=== PATIENT | female | born 1975 | race Caucasian/White ===

== ENCOUNTER 2017-11-28 18:47 | Emergency (ER) | payer BC ==
[~2017-11-28] VITALS: Ht 162.6 cm; Wt 110.2 kg
== END 2017-11-28 21:52 | disposition home or self-care (01) ==
LOC: ER 18:47
DX: R05 Cough (principal); J02.9 Acute pharyngitis, unspecified; G35 Multiple sclerosis
CPT/HCPCS: 99282

== ENCOUNTER 2019-01-24 14:54 | Emergency (ER) | payer BC ==
[~2019-01-24] VITALS: Ht 162.6 cm; Wt 110.2 kg
--- OUTSIDE RECORDS SUMMARY | 2019-01-24 14:57 | XMS REPORT ---
Author Author Aida Hughes Organization [employer] Address Unknown Phone Unavailable Care Team Providers Care Sketch Artist Name Role Phone Aida Hughes CP Unavailable Allergies No Known Allergies Problems Problem Type Condition Code Onset Dates Condition Status Assessment Effusion of hand joint, left M25.442 Active Assessment Stiffness of right wrist joint M25.631 Active Assessment Pain in right wrist M25.531 Active Assessment Swelling of limb M79.89 Active Assessment Pain in joint of left hand M79.642 Active Assessment Localized swelling, mass and lump, upper limb R22.30 Active Medications No Known Medications Vital Signs Date/Time: March 20, 2018 Height 65 in Blood Pressure Diastolic 66 mm Hg Blood Pressure Systolic 95 mm Hg Weight 240 lbs Results No Known Results Summary Purpose eClinicalWorks Submission
--- OUTSIDE RECORDS SUMMARY | 2019-01-24 14:57 | XMS REPORT ---
Author Author Aida Hughes Organization [employer] Address Unknown Phone Unavailable Care Team Providers Care Building Construction Professor Name Role Phone Aida Hughes CP Unavailable Allergies No Known Allergies Problems Problem Type Condition Code Onset Dates Condition Status Problem Inflammatory arthritis M19.90 Active Medications No Known Medications Results No Known Results Summary Purpose eClinicalWorks Submission
--- OUTSIDE RECORDS SUMMARY | 2019-01-24 14:57 | XMS REPORT ---
Author Author Aida Hughes Organization [employer] Address Unknown Phone Unavailable Care Team Providers Care Maintenance Inspector Name Role Phone Aida Hughes CP Unavailable Allergies, Adverse Reactions, Alerts Substance Reaction Event Type N.K.D.A. Info Not Available Non Drug Allergy Problems Problem Type Condition Code Onset Dates Condition Status Assessment Inflammatory arthritis M19.90 Active Assessment Pain of left hand M79.642 Active Problem Inflammatory arthritis M19.90 Active Assessment Pain in right hand M79.641 Active Assessment Pain, joint, multiple sites M25.50 Active Medications Medication Code System Code Instructions Start Date End Date Status Dosage Tecfidera [facility] 22615723674 240 MG Orally Twice a day Active [address] [facility] 39214838433 20 mg Orally Once a day Jul 18, 2018 Active 1 tablet Venlafaxine HCl [facility] 43661811618 75 MG Orally Once a day Active 1 tablet with food Turmeric ND 28722780808 500 MG Orally Active not defined Aripiprazole ND 97705474613 2 MG Orally Once a day Active [address] [facility] 04194259387 35 MG Orally Twice a day Active 1 tab(s) with food as needed Omeprazole ND 24779521771 20 MG Orally Once a day Active [address] [facility] 81274668440 15 MG Orally Once a day Nov 02, 2018 Active 1 tab(s) with food as needed Hydroxychloroquine Sulfate ND 53162891970 200 MG Orally Once a day Active 1 tablet with food or milk Hydroxychloroquine Sulfate ND 38168076945 200 MG orally Once a day Jul 18, 2018 Inactive 2 tabs Amantadine HCl ND 46238926652 100 MG Orally Twice a day Active 2 capsules Vital Signs Date/Time: Jul 18, 2018 Height 65 in Blood Pressure Diastolic 63 mm Hg Blood Pressure Systolic 96 mm Hg Weight 255.2 lbs Results No Known Results Summary Purpose eClinicalWorks Submission
--- OUTSIDE RECORDS SUMMARY | 2019-01-24 14:57 | XMS REPORT ---
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
--- OUTSIDE RECORDS SUMMARY | 2019-01-24 14:57 | XMS REPORT ---
Author Author Aida Hughes Organization [employer] Address Unknown Phone Unavailable Care Team Providers Care Heart Surgeon Name Role Phone Aida Hughes CP Unavailable Allergies No Known Allergies Problems No Known Problems Medications Medication Code System Code Instructions Start Date End Date Status Dosage Zorvolex [facility] 2] 37340524201 35 MG Orally Twice a day March 25, 2018 Jul 23, 2018 Active 1 tab(s) with food as needed Results No Known Results Summary Purpose eClinicalWorks Submission
--- OUTSIDE RECORDS SUMMARY | 2019-01-24 14:57 | XMS REPORT ---
Author Author Aida Hughes Organization [employer] Address Unknown Phone Unavailable Care Team Providers Care Apprentice/Lineman Name Role Phone Aida Hughes CP Unavailable Allergies No Known Allergies Problems Problem Type Condition Code Onset Dates Condition Status Assessment Inflammatory arthritis M19.90 Active Problem Inflammatory arthritis M19.90 Active Medications Medication Code System Code Instructions Start Date End Date Status Dosage Meloxicam ND 64441026641 15 MG Orally Once a day Nov 02, 2018 Active 1 tab(s) with food as needed Hydroxychloroquine Sulfate ND 47924503453 200 MG orally Once a day April 09, 2018 Nov 02, 2018 Active 2 tabs Results No Known Results Summary Purpose eClinicalWorks Submission
--- OUTSIDE RECORDS SUMMARY | 2019-01-24 14:57 | XMS REPORT ---
Author Author Aida Hughes Organization [employer] Address Unknown Phone Unavailable Care Team Providers Care Corsets Salesperson Name Role Phone Aida Hughes CP Unavailable Allergies No Known Allergies Problems Problem Type Condition Code Onset Dates Condition Status Assessment Inflammatory arthritis M19.90 Active Problem Inflammatory arthritis M19.90 Active Medications Medication Code System Code Instructions Start Date End Date Status Dosage Zorvolex [facility] 30836909672 35 MG Orally Twice a day Nov 13, 2018 Active 1 tab(s) with food as needed Hydroxychloroquine Sulfate [facility] 94000201652 200 MG orally Once a day Jul 16, 2018 Inactive 2 tabs Results No Known Results Summary Purpose eClinicalWorks Submission
--- OUTSIDE RECORDS SUMMARY | 2019-01-24 14:57 | XMS REPORT ---
Author Author Aida Hughes Organization [employer] Address Unknown Phone Unavailable Care Team Providers Care It Infrastructure Architect Name Role Phone Aida Hughes CP Unavailable [...] Instructions Start Date End Date Status Dosage Amantadine HCl [facility] 85054955745 100 MG Orally Twice a day Active 2 capsules Venlafaxine HCl [facility] 66423279350 75 MG Orally Once a day Active 1 tablet with food Tecfidera [facility] 58187420956 240 MG Orally Twice a day Active 1 capsule Zorvolex [facility] 41209203734 35 MG Orally Twice a day March 25, 2018 Jul 23, 2018 Active 1 tab(s) with food as needed Meloxicam [facility] 25978090160 15 MG Orally Once a day Inactive 1 tab(s) with food as needed Omeprazole [facility] 23744685822 20 MG Orally Once a day Active 1 capsule Turmeric [facility] 89120472538 500 MG Orally Active not defined Aripiprazole [facility] 86978492557 2 MG Orally Once a day Active 1 tablet Hydroxychloroquine Sulfate [facility] 61526068383 200 MG orally Once a day April 09, 2018 Active 2 tabs Vital Signs Date/Time: April 09, 2018 Height 65 in Blood Pressure Diastolic 63 mm Hg Blood Pressure Systolic 102 mm Hg Weight 240 lbs Results No Known Results Summary Purpose eClinicalWorks Submission
--- OUTSIDE RECORDS SUMMARY | 2019-01-24 14:57 | XMS REPORT | Continuity of Care Document ---
Author Author [facility] Interface Address Unknown Phone Unavailable Problems Problem Status Onset Date Classification Date Reported Comments Source Inflammatory arthritis Active Problem 01/18/2019 Aida Najam Effusion of hand joint, left Active Diagnosis 03/27/2018 Aida Najam Stiffness of right wrist joint Active Diagnosis 03/27/2018 Aida Najam Pain in right wrist Active Diagnosis 03/27/2018 Aida Najam Swelling of limb Active Diagnosis 03/27/2018 Aida Najam Pain in joint of left hand Active Diagnosis 03/27/2018 Aida Najam Localized swelling, mass and lump, upper limb Active Diagnosis 03/27/2018 Aida Najam Pain of left hand Active Diagnosis 08/30/2018 Aida Najam Pain in right hand Active Diagnosis 08/30/2018 Aida Najam Pain, joint, multiple sites Active Diagnosis 08/30/2018 Aida Najam Chronic leukopenia Active Problem 01/18/2019 Aida Najam Rheumatoid arthritis without rheumatoid factor, unspecified ankle and foot Active Problem 01/18/2019 Aida Najam 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 intervertebral disc Active Problem 01/18/2019 Aidadionte Hughes High risk medication use Active Diagnosis 01/09/2019 Aida Najam Left hip pain Active Diagnosis 01/09/2019 Aida Najam Trochanteric bursitis, left hip Active Diagnosis 01/09/2019 Aida Hughes Medications Medication Details Route Status Patient Instructions Ordering Provider Order Date Source Leflunomide 1 tablet Orally Active 20 mg Orally Once a day Najam 07/01/2019 Aida Hughes Zorvolex 1 tab(s) with food as needed Orally Active 35 MG Orally Twice a day Najam 07/01/2019 Aidadionte Hughes Gabapentin 1 capsule Orally Active 300 MG Orally Three times a day Najam 01/08/2019 Aidadionte Hughes Tizanidine HCl 1 tablet as needed Orally Active 4 MG Orally bedtime Najam 01/08/2019 Aida Hughes Tylenol/Codeine #3 1 tablet as needed Orally Active 300-30 MG Orally daily [facility] 01/08/2019 [place] Medrol as directed Orally Active 4 MG Orally Once a day [facility] 01/02/2019 [place] Zorvolex 1 tab(s) with food as needed Orally Active 35 MG Orally Twice a day [facility] 11/13/2018 [place] Hydroxychloroquine Sulfate 2 tabs orally Active 200 MG orally Once a day [facility] 11/07/2018 [place] Meloxicam 1 tab(s) with food as needed Orally Active 15 MG Orally Once a day [facility] 11/02/2018 [place] Leflunomide 1 tablet Orally Active 20 mg Orally Once a day [facility] 07/18/2018 [place] Hydroxychloroquine Sulfate 2 tabs orally Active 200 MG orally Once a day [facility] 07/18/2018 [place] Hydroxychloroquine Sulfate 2 tabs orally Active 200 MG orally Once a day [facility] 07/16/2018 [place] [facility] Hydroxychloroqu[facility]ulfate 2 tabs orally Active 200 MG orally Once a day [facility] 04/09/2018 [place] Zorvolex 1 tab(s) with food as needed Orally Active 35 MG Orally Twice a day [facility] 03/25/2018 [place] Meloxicam 1 tab(s) with food as needed Orally Active 15 MG Orally Once a day [facility] 02/19/2018 [place] Tecfidera 1 capsule Orally Active 240 MG Orally Twice a day [facility] [place] Venlafaxine HCl 1 tablet with food Orally Active 75 MG Orally Once a day [facility] [place] Turmeric not defined Orally Active 500 MG [facility] Aripiprazole 1 tablet Orally Active 2 MG Orally [facility] a [facility] Zorvolex 1 tab(s) with food as needed Orally Active 35 MG Orally Twice a day [facility] [place] Omeprazole 1 capsule Orally Active 20 MG Orally Once a day [facility] [place] Hydroxychloroquine Sulfate 1 tablet with food or milk Orally Active 200 MG Orally Once a day [facility] Amantadine HCl 2 capsules Orally Active 100 MG Orally Twice a day Naerendira Parra Naerendira Meloxicam 1 tab(s) with food as needed Orally Active 15 MG Orally Once a day Narockm Aida Narockm Leflunomide 1 tablet Orally Active 20 mg Orally Once a day Najam Aida Narockm Allergies, Adverse Reactions, Alerts Substance Category Reaction Severity Reaction type Status Date Reported Comments Source N.K.D.A. Adverse Reaction Info Not Available Adverse Reaction Active 01/08/2019 Aida Narockm Immunizations Immunization Date Given Site Status Last Updated Comments Source Results Order Name Results Value Reference Range Date Interpretation Comments Source Vital Signs Vital Sign Value Date Comments Source Height 65 01/08/2019 Aida Najam Diastolic (mm Hg) 66 01/08/2019 Aida Najam Systolic (mm Hg) 94 01/08/2019 Aida Najam Height 65 01/02/2019 [place] Najam Diastolic (mm Hg) 74 01/02/2019 Aida Najam Systolic (mm Hg) 105 01/02/2019 Aida Najam Weight 260.8 01/02/2019 Aida Najam Diastolic (mm Hg) 68 08/29/2018 Aida Najam Systolic (mm Hg) 109 08/29/2018 Aida Najam Weight 256.4 08/29/2018 Aida Najam Height 65 08/29/2018 Aida Najam Height 65 07/18/2018 Aida Najam Diastolic (mm Hg) 63 07/18/2018 Aida Najam Systolic (mm Hg) 96 07/18/2018 Aida Najam Weight 255.2 07/18/2018 Aida Najam Weight 253.6 07/10/2018 Aida Najam Height 65 07/10/2018 Aida Najam Height 65 04/09/2018 Aida Najam Diastolic (mm Hg) 63 04/09/2018 Aida Najam Systolic (mm Hg) 102 04/09/2018 Aida Najam Weight 240 04/09/2018 Aida Najam Height 65 03/20/2018 Aida Najam Diastolic (mm Hg) 66 03/20/2018 Aida Najam Systolic (mm Hg) 95 03/20/2018 Aida Najam Weight 240 03/20/2018 Aida Najam Height 65 02/19/2018 Aida Saul Diastolic (mm Hg) 66 02/19/2018 Aida Saul Systolic (mm Hg) 95 02/19/2018 Aida Saul Weight 240 02/19/2018 Aida Hughes Encounters Location Location Details Encounter Type Encounter Number Reason For Visit Attending Provider ADM Date DC Date Status Source Procedures Procedure Code Date Perfomer Comments Source
--- OUTSIDE RECORDS SUMMARY | 2019-01-24 14:57 | XMS REPORT ---
Author Author Aida Hughes Organization [employer] Address Unknown Phone Unavailable Care Team Providers Care Photoflash Powder Mixer Name Role Phone Aida Hughes CP Unavailable Allergies, Adverse Reactions, Alerts Substance Reaction Event Type N.K.D.A. Info Not Available Non Drug Allergy Problems Problem Type Condition Code Onset Dates Condition Status Assessment High risk medication use Z79.899 Active Assessment Left hip pain M25.552 Active Problem Chronic leukopenia D72.819 Active Problem Inflammatory arthritis M19.90 Active Problem Rheumatoid arthritis without rheumatoid factor, unspecified ankle and foot M06.079 Active Assessment Inflammatory arthritis M19.90 Active Assessment Chronic leukopenia D72.819 Active Assessment Rheumatoid arthritis without rheumatoid factor, unspecified ankle and foot M06.079 Active Medications Medication Code System Code Instructions Start Date End Date Status Dosage Omeprazole [facility] 11198798405 20 MG Orally Once a day Active 1 capsule Medrol [facility] 76633578552 4 MG Orally Once a day Jan 02, 2019 Active as directed Leflunomide ND 11839466696 20 mg Orally Once a day Active 1 tablet Leflunomide [facility] 29300173031 20 mg Orally Once a day Jul 01, 2019 Active 1 tablet Aripiprazole [facility] 48839740104 2 MG Orally Once a day Active 1 tablet Tecfidera [facility] 69691523402 240 MG Orally Twice a day Active 1 capsule Amantadine HCl [facility] 89926636787 100 MG Orally Twice a day Active 2 capsules Zorvolex [facility] 76906653535 35 MG Orally Twice a day Jul 01, 2019 Active 1 tab(s) with food as needed Vital Signs Date/Time: Jan 02, 2019 Height 65 in Blood Pressure Diastolic 74 mm Hg Blood Pressure Systolic 105 mm Hg Weight 260.8 lbs Results No Known Results Summary Purpose eClinicalWorks Submission
--- OUTSIDE RECORDS SUMMARY | 2019-01-24 14:57 | XMS REPORT ---
Author Author Aida Hughes [facility] eClinicalWorks Address Unknown Phone Unavailable Care Team Providers Care Operator Control Room Name Role Phone Aida Hughes CP Unavailable Allergies, Adverse Reactions, Alerts Substance Reaction Event Type N.K.D.A. Info Not Available Non Drug Allergy Problems Problem Type Condition Code Onset Dates Condition Status Assessment High risk medication use Z79.899 Active Assessment Pain, joint, multiple sites M25.50 Active Assessment Chronic leukopenia D72.819 Active Problem Chronic leukopenia D72.819 Active Problem Inflammatory arthritis M19.90 Active Problem Rheumatoid arthritis without rheumatoid factor, unspecified ankle and foot M06.079 Active Assessment Pain of left hand M79.642 Active Assessment Pain in right hand M79.641 Active Assessment Rheumatoid arthritis without rheumatoid factor, unspecified ankle and foot M06.079 Active Assessment Inflammatory arthritis M19.90 Active Medications Medication Code System Code Instructions Start Date End Date Status Dosage Zorvolex [facility] 86018390887 35 MG Orally Twice a day Active 1 tab(s) with food as needed Omeprazole ND 84190623786 20 MG Orally Once a day Active 1 capsule Hydroxychloroquine Sulfate ND 80358151494 200 MG Orally Once a day Active 1 tablet with food or milk Venlafaxine HCl [facility] 03746260965 75 MG Orally Once a day Active 1 tablet with food Aripiprazole ND 94061407969 2 MG Orally Once a day Active 1 tablet [address]a [facility] 30811364560 240 MG Orally Twice a day Active 1 capsule Meloxicam ND 55051509449 15 MG Orally Once a day Nov 02, 2018 Active 1 tab(s) with food as needed Turmeric ND 67505392276 500 MG Orally Active not defined Leflunomide ND 69458084669 20 mg Orally Once a day Active 1 tablet Amantadine HCl ND 06558251732 100 MG Orally Twice a day Active 2 capsules Vital Signs Date/Time: Aug 29, 2018 Blood Pressure Diastolic 68 mm Hg Blood Pressure Systolic 109 mm Hg Temperature . F Weight 256.4 lbs Height 65 in Results No Known Results Summary Purpose eClinicalWorks Submission
--- OUTSIDE RECORDS SUMMARY | 2019-01-24 14:57 | XMS REPORT ---
Author Author Aida Hughes [facility] eClinicalWorks Address Unknown Phone Unavailable Care Team Providers Care Porcelain Mixer Name Role Phone Aida Hughes CP Unavailable Allergies, Adverse Reactions, Alerts Substance Reaction Event Type N.K.D.A. 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 Assessment Trochanteric bursitis, left hip M70.62 Active Assessment Rheumatoid arthritis without rheumatoid factor, unspecified ankle and foot M06.079 Active Problem Inflammatory arthritis M19.90 Active Medications Medication Code System Code Instructions Start Date End Date Status Dosage Amantadine HCl [facility] 99441644953 100 MG Orally Twice a day Active 2 capsules Gabapentin ND 29085181511 300 MG Orally Three times a day Jan 08, 2019 Active 1 capsule Leflunomide ND 55714021457 20 mg Orally Once a day Active 1 tablet Tecfidera [facility] 24432998165 240 MG Orally Twice a day Active 1 capsule Tizanidine HCl [facility] 23548791471 4 MG Orally bedtime Jan 08, 2019 March 09, 2019 Active 1 tablet as needed Aripiprazole ND 78543305010 2 MG Orally Once a day Active 1 tablet Zorvolex ND 67685572349 35 MG Orally Twice a day Active 1 tab(s) with food as needed Medrol ND 21752182722 4 MG Orally Once a day Jan 02, 2019 Active as directed Omeprazole ND 85280197106 20 MG Orally Once a day Active 1 capsule Tylenol/Codeine #3 [facility] 16519821687 300-30 MG Orally daily Jan 08, 2019 February 07, 2019 Active 1 tablet as needed Vital Signs Date/Time: Jan 08, 2019 Height 65 in Blood Pressure Diastolic 66 mm Hg Blood Pressure Systolic 94 mm Hg Weight cannot stand lbs Results No Known Results Summary Purpose eClinicalWorks Submission
--- OUTSIDE RECORDS SUMMARY | 2019-01-24 14:57 | XMS REPORT ---
Author Author Aida Hughes Organization [employer] Address Unknown Phone Unavailable Care Team Providers Care Panel Laminator Name Role Phone Aida Hughes CP Unavailable [...]
--- OUTSIDE RECORDS SUMMARY | 2019-01-24 14:57 | XMS REPORT ---
Author Author Aida Hughes Organization [employer] Address Unknown Phone Unavailable Care Team Providers Care Executive Admin Name Role Phone Gilliansarkis Aida CP Unavailable Allergies, Adverse Reactions, Alerts Substance Reaction Event Type N.K.D.A. Info Not Available Non Drug Allergy Problems Problem Type Condition Code Onset Dates Condition Status Assessment Pain in right hand M79.641 Active Assessment Pain, joint, multiple sites M25.50 Active Assessment Pain of left hand M79.642 Active Medications Medication Code System Code Instructions Start Date End Date Status Dosage Venlafaxine HCl [facility] [place] 44286285538 75 MG Orally Once a day Active 1 tablet with food Tecfidera [facility] [place] 2] 98819487207 240 MG Orally Twice a day Active 1 capsule Meloxicam [facility] [place] 2] 18292385154 15 MG Orally Once a day February 19, 2018 Active 1 tab(s) with food as needed Omeprazole [facility] [place] 2] 10260844358 20 MG Orally Once a day Active 1 capsule Turmeric ND 06297092025 500 MG Orally Active not defined Aripiprazole [facility] [place] 2] 11858341648 2 MG Orally Once a day Active 1 tablet Amantadine HCl [facility] [place]NOTE 2] 60302461657 100 MG Orally Twice a day Active 2 capsules Vital Signs Date/Time: February 19, 2018 Height 65 in Blood Pressure Diastolic 66 mm Hg Blood Pressure Systolic 95 mm Hg Weight 240 lbs Results Name Result Date Reference Range Unit Abnormality Flag ANTI-CITRULLINE, AB. (CCP) ----ANTI-CCP <1.5 20180219 <4.0 U/mL HEP C AB W/RFX RT PCR Anti-BILLET INSPECTOR Ab ----ANTI-SM/BILLET INSPECTOR Negative [id number] Neg=<1.0 AI ESR (SED-RATE) ----ESR (SED-RATE) 27 20180219 <31 mm/hr COMPREHENSIVE METABOLIC ----e-GFR 87 20180219 >or=60 mL/min ----Creatinine 0.82 20180219 0.49-1.02 mg/dL ----Globulin 2.7 93754818 1.7-3.7 g/dL ----Glucose 91 02097670 70-99 mg/dL ----A/G Ratio 1.7 13872717 1.1-2.9 ----ALT 15 19478781 <33 U/L ----Sodium 139 97541495 135-147 mmol/L ----AST 17 42359982 <32 U/L ----Potassium 4.4 98902997 3.5-5.5 mmol/L ----Alk Phos 102 79680474 40-156 U/L ----Chloride 100 72225953 96-108 mmol/L ----Bilirubin, Total <0.2 87585751 <1.2 mg/dL ----CO2 21 61952407 22-29 mmol/L L ----Total Protein 7.3 55682903 5.9-8.4 g/dL ----BUN 14 06995186 6-20 mg/dL ----Calcium 9.4 30859858 8.6-10.4 mg/dL ----Albumin 4.6 89512710 3.5-5.2 g/dL ----e-GFR, 101 05943523 >or=60 mL/min RF (RHEUMATOID ARTHRITIS) TITER ----RHEUMATOID (RF) TITER <10 11642968 <14 IU/mL Quantiferon TB Gold ----QUANTIFERON-TB GOLD NEGATIVE 39703702 NEGATIVE ----NIL VALUE 0.026 45587530 ----TB ANTIGEN-NIL VALUE -0.003 68214057 ----MITOGEN- NIL VALUE 8.241 44847445 CBC w/DIFF, PLATELET CT. ----MCHC 35.2 92771974 29.0-35.0 gm/dL H ----MCH 30.9 85329870 25.0-34.1 pg ----POLYS 69.9 22503085 36.0-78.0 % ----RDW 13.9 45670111 10.9-16.9 % ----MONOS 13.1 03461858 0.0-13.0 % H ----EOS 1.7 46127456 0.0-8.0 % ----LYMPHS 14.8 36976619 12.0-48.0 % ----PLATELET COUNT 318 16344507 144-400 x10(3)/uL ----HCT 39.5 71717739 34.5-46.5 % ----MPV 10.8 88191224 8.2-11.9 fL ----MCV 87.8 42144536 80.0-100.0 fL ----RBC 4.50 15086187 3.60-5.50 x10(6)/uL ----BASOS 0.5 75483897 0.0-2.0 % ----IMMATURE GRANULOCYTES 0.0 47701059 0.0-1.6 % ----HGB 13.9 45211336 11.5-15.6 gm/dL ----WBC 4.06 56777716 3.66-11.99 x10(3)/uL HEPATITIS B SURFACE ANTIGEN ----HEP. B SURF. Ag Non-Reactive 20180219 Non-Reactive HEPATITIS B SURFACE ANTIBODY ----HEP. B SURF. Ab. Non-Reactive 20180219 Non-Reactive ANTI-DOUBLE STRANDED DNA ----ANTI-dsDNA Negative 20180219 See Below IU/mL MAVERICK - ANTINUCLEAR ANTIBODY ----MAVERICK SCREEN Negative [id number] Neg=<1:80 CRP (C-REACTIVE PROTEIN), SERUM ----CRP 0.3 37807687 <0.5 mg/dL Summary Purpose [employer] Submission
--- OUTSIDE RECORDS SUMMARY | 2019-01-24 14:57 | XMS REPORT ---
Author Author Aida Hughes Organization [employer] Address Unknown Phone Unavailable Care Team Providers Care Apparel Rental Clerk Name Role Phone Aida Hughes CP Unavailable [...] Instructions Start Date End Date Status Dosage Hydroxychloroquine Sulfate [facility] 72464842510 200 MG orally Once a day Nov 07, 2018 Active 2 tabs Zorvolex [facility] 48108770854 35 MG Orally Twice a day Active 1 tab(s) with food as needed Amantadine HCl ND 71795017118 100 MG Orally Twice a day Active 2 capsules Meloxicam ND 76762206817 15 MG Orally Once a day Nov 02, 2018 Active 1 tab(s) with food as needed Turmeric ND 20887863748 500 MG Orally Active not defined Tecfidera ND 60575060516 240 MG Orally Twice a day Active 1 capsule Aripiprazole ND 33806404102 2 MG Orally Once a day Active 1 tablet Venlafaxine HCl [facility] 05746316010 75 MG Orally Once a day Active 1 tablet with food Omeprazole ND 62110012853 20 MG Orally Once a day Active 1 capsule Vital Signs Date/Time: Jul 10, 2018 Weight 253.6 lbs Height 65 in Results No Known Results Summary Purpose [employer] Submission
[2019-01-24] MEDS ORDERED: HYDROCODONE/APAP 10MG-325MG TAB PO ONE (15:30)
[2019-01-24] MEDS ORDERED: DEXAMETHASONE SOD PHOS 10 MG/1 ML VIAL IM ONE (15:30)
[2019-01-24] MEDS ORDERED: KETOROLAC TROMETHAMINE 60 MG/2 ML VIAL IM ONE (15:30)
[2019-01-24] MEDS ORDERED: CYCLOBENZAPRINE HCL 10 MG TAB PO ONE (15:30)
[2019-01-24] MEDS ORDERED: LEFLUNOMIDE20 MG PO (15:41)
[2019-01-24] MEDS ORDERED: AMANTADINE100 MG PO (15:41)
[2019-01-24] MEDS ORDERED: TECFIDERA PO (15:41)
[2019-01-24] MEDS ORDERED: TIZANIDINE HCL4 MG PO (15:41)
[2019-01-24] MEDS ORDERED: VENLAFAXINE HCL75 M1 PO (15:41)
[2019-01-24] MEDS ORDERED: GABAPENTIN300 MG PO (15:41)
[2019-01-24] MEDS ORDERED: ZORVOLEX PO (15:42)
[2019-01-24] MEDS ORDERED: ABILIFY2 MG PO (15:42)
[2019-01-24] MEDS ORDERED: OMEPRAZOLE40 MG PO (15:43)
[2019-01-24 17:24] VITALS: BP 137/84
== END 2019-01-24 17:45 | disposition home or self-care (01) ==
LOC: ER 14:54
DX: M54.42 Lumbago with sciatica, left side (principal); G35 Multiple sclerosis; M06.9 Rheumatoid arthritis, unspecified; F32.9 Major depressive disorder, single episode, unspecified
CPT/HCPCS: 99283; J1100; J1885